=== PATIENT | male | born 1945 | race American Indian/Alaskan Native ===

== ENCOUNTER 2019-08-03 08:36 | Day surgery (SDC) | payer MEDICARE ==
[~2019-08-03] VITALS: Ht 180.3 cm; Wt 94.8 kg
[~2019-08-03 08:36] MED LIST: AMA1T PO; CARV-50 PO; EMPA10TA PO; FOLI0.4T2 PO; GLUC100017 PO; MELO-102 PO; METF-438 PO; OMEP-50 PO; PEMB100V; RIVA20TA PO; SACU1TAB PO; SIMV-45 PO; TRAM50TA2 PO; TURM538C PO; VITA1CAP19 PO
[2019-08-03] MEDS ORDERED: LIDOcaine 1%/PF 5ML 10 MG/ML VIAL ONE (08:41)
[2019-08-03] MEDS ORDERED: LIDOcaine 1% W/epiNEPHrine 1:200,000 10ml vial IJ ONE (09:00)
[2019-08-03 10:05] VITALS: BP 124/81
[2019-08-03] MEDS ORDERED: PREN1TAB79 PO (10:05)
[2019-08-03] MEDS ORDERED: UBID100C16 PO (10:05)
[2019-08-03] MEDS ORDERED: [UNRECOGNIZED DRUG - CODE] PO (10:05)
[2019-08-03] MEDS ORDERED: DOCU-21 PO (10:05)
[2019-08-03] MEDS ORDERED: fentaNYL/PF 50MCG/1 ML 2ML syringe ONE (10:20)
[2019-08-03 10:45] VITALS: BP 146/83
[2019-08-03 10:50] VITALS: BP 137/73
[2019-08-03 10:54] VITALS: BP 134/82
[2019-08-03 11:09] VITALS: BP 135/80
[2019-08-03 11:15] VITALS: BP 134/76
== END 2019-08-03 11:35 | disposition home or self-care (01) ==
LOC: SSTAY O 08:36
PROVIDERS: ATTEND Radiology Vascular & Interventional Radiology
DX: Z45.2 Encounter for adjustment and management of vascular access device (principal); C34.92 Malignant neoplasm of unspecified part of left bronchus or lung; C34.91 Malignant neoplasm of unspecified part of right bronchus or lung; C76.8 Malignant neoplasm of other specified ill-defined sites; I25.10 Atherosclerotic heart disease of native coronary artery without angina pectoris; E11.9 Type 2 diabetes mellitus without complications; Z85.46 Personal history of malignant neoplasm of prostate; Z95.1 Presence of aortocoronary bypass graft; Z98.890 Other specified postprocedural states; Z88.8 Allergy status to other drugs, medicaments and biological substances; Z88.1 Allergy status to other antibiotic agents; Z79.899 Other long term (current) drug therapy; Z79.84 Long term (current) use of oral hypoglycemic drugs; Z80.9 Family history of malignant neoplasm, unspecified
CPT/HCPCS: 36590; J3010